=== PATIENT | male | born 1980 | race Caucasian/White ===

== ENCOUNTER → 2019-10-03 | Outpatient (CLI) | payer OTHER ==
[2019-10-03 20:36] LABS: Influenza A Negative (NEGATIVE); Influenza B Negative (NEGATIVE)
== END | disposition home or self-care (01) ==
LOC: LAB 16:15 → LAB SHORT 16:15
PROVIDERS: Nurse Practitioner Family
DX: R05 Cough (principal)
CPT/HCPCS: 87804

== ENCOUNTER → 2019-11-24 | Outpatient (CLI) | payer OTHER | LOC: LAB SHORT 15:27 → LAB 15:27 | DX: L03.011 Cellulitis of right finger (principal) | CPT/HCPCS: 87070; 87077; 87147; 87186; 87205 ==